=== PATIENT | male | born 1960 | race Caucasian/White ===

== ENCOUNTER 2024-10-09 11:24 | Emergency (ER) | payer OTHER ==
[~2024-10-09] VITALS: Ht 170.2 cm; Wt 81.8 kg
[2024-10-09 11:40] VITALS: TEMP 98.4
[2024-10-09 12:44] VITALS: BP 128/77; PULSE 104; RESP 16; O2SAT 96
== END 2024-10-09 12:46 ==
LOC: ER 11:25
DX: S50.312A Abrasion of left elbow, initial encounter (principal); F10.129 Alcohol abuse with intoxication, unspecified; Y90.9 Presence of alcohol in blood, level not specified; V89.2XXA Person injured in unspecified motor-vehicle accident, traffic, initial encounter; Y93.89 Activity, other specified; Y92.89 Other specified places as the place of occurrence of the external cause; Y99.8 Other external cause status
CPT/HCPCS: 99283